=== PATIENT | female | born 1990 | race African-American/Black ===

== ENCOUNTER 2021-03-23 15:30 | Outpatient (CLI) | payer OTHER ==
[2021-03-24 08:59] LABS: SARS-CoV-2 PCR by NAA Not Detected (NotDetected)
== END 2021-03-23 15:31 | disposition home or self-care (01) ==
LOC: CSHLAB 15:30
PROVIDERS: ATTEND Family Medicine
DX: Z20.822 Contact with and (suspected) exposure to COVID-19 (principal)
CPT/HCPCS: U0003; U0005

== ENCOUNTER 2021-03-24 09:04 | Inpatient (IN) | payer OTHER ==
[2021-03-24 09:57] VITALS: BMI 27.4
[2021-03-24] MEDS ORDERED: NS w/ Oxytocin 30 units 500 ML IV SCH (10:30)
[2021-03-24] MEDS ORDERED: Carboprost 250 MCG/ML AMP IM PRN (10:30)
[2021-03-24] MEDS ORDERED: NS w/ Oxytocin 30 units 500 ML IVPB SCH (10:30)
[2021-03-24] MEDS ORDERED: Ondansetron PF 4 MG/2 ML Vial IVP PRN (10:30)
[2021-03-24] MEDS ORDERED: Lactated Ringer's 1,000 ML IV SCH (10:30)
[2021-03-24] MEDS ORDERED: Butorphanol Tartrate 1 MG/ML VIAL SLOW IVP PRN (10:30)
[2021-03-24] MEDS ORDERED: Lidocaine 1% (PF) 30 ML VIAL SC PRN (10:30)
[2021-03-24] MEDS ORDERED: Promethazine HCl 25 MG/ML VIAL IM PRN ×2 (10:30→14:06)
[2021-03-24] MEDS ORDERED: Misoprostol 200 MCG TAB PR PRN (10:30)
[2021-03-24] MEDS ORDERED: HYDROcodone/Acetaminophen 5/325 mg Tablet PO PRN (10:30)
[2021-03-24] MEDS ORDERED: Methylergonovine 0.2 MG/ML VIAL IM PRN (10:30)
[2021-03-24] MEDS ORDERED: Acetaminophen 500 MG TAB PO PRN (10:30)
[2021-03-24] MEDS ORDERED: Ibuprofen 800 MG TAB PO PRN (10:30)
[2021-03-24] MEDS ORDERED: Diphenoxylate HCl/Atropine Tablet PO PRN (10:30)
[2021-03-24] MEDS ORDERED: hydrALAZINE 20 MG/ML VIAL SLOW IVP PRN ×2 (10:30→14:06)
[2021-03-24 10:49] LABS: Hemoglobin 13.6 g/dL (12.0-15.5); Mean Corpuscular HGB CONC 35.1 g/dL (32.0-36.0); Mean Corpuscular Hemoglobin 30.7 pg (27.0-33.0); Mean Corpuscular Volume 87.6 fl (81.6-98.3); Mean Platelet Volume 11.1 fl (7.4-10.4); Platelet Count 173 10x3/uL (150-450); RBC Distribution Width 14.4 % (11.5-14.5); Red Blood Cell (RBC) Count 4.43 10x6/uL (3.90-5.03); White Blood Cell (WBC) Count 10.7 10x3/uL (3.5-10.5)
[2021-03-24 11:31] LABS: Syphilis Antibody Nonreactive (Nonreactive); Syphilis Antibody Index 0.05 S/CO (<1.00 Non-Reactive)
[2021-03-24 11:32] LABS: Hep B Surf Ag Non-Reactive S/CO (NonReactive)
[2021-03-24 11:44] LABS: HBSAg Index 0.26 S/CO (0-0.99)
[2021-03-24] MEDS: NS w/ Oxytocin 30 units 500 ML IV SCH ×2 (13:01→13:43)
[2021-03-24] MEDS ORDERED: Preparation H Ointment 28 GM TUBE PR PRN (14:06)
[2021-03-24] MEDS ORDERED: Bisacodyl 10 MG SUPP PR PRN (14:06)
[2021-03-24] MEDS ORDERED: Milk Of Magnesia 30 ML UDCUP PO PRN (14:06)
[2021-03-24] MEDS ORDERED: Lanolin Ointment 7 GM TUBE TOP PRN (14:06)
[2021-03-24] MEDS ORDERED: Boostrix 0.5 ML (Tdap) VIAL IM ONE (14:06)
[2021-03-24] MEDS ORDERED: Ibuprofen 800 MG TAB PO SCH (14:30)
[2021-03-24] MEDS: HYDROcodone/Acetaminophen 5/325 mg Tablet PO PRN (15:18)
[2021-03-24] MEDS: Ferrous Sulfate 325 MG TAB PO SCH (16:13)
[2021-03-24] MEDS: Docusate Calcium (SURFAK) 240 MG CAP PO SCH (22:31)
[2021-03-24] MEDS: Ibuprofen 800 MG TAB PO SCH (22:31)
[2021-03-25] MEDS: HYDROcodone/Acetaminophen 5/325 mg Tablet PO PRN (05:01)
[2021-03-25] MEDS: Ibuprofen 800 MG TAB PO SCH ×3 (05:05→21:17)
[2021-03-25] MEDS: Ferrous Sulfate 325 MG TAB PO SCH ×2 (09:03→18:25)
[2021-03-25] MEDS: Prenatal Vitamin 1 TAB PO SCH (09:03)
[2021-03-25] MEDS: Docusate Calcium (SURFAK) 240 MG CAP PO SCH ×2 (09:03→21:17)
[2021-03-26] MEDS: Ibuprofen 800 MG TAB PO SCH ×2 (05:04→13:43)
[2021-03-26 07:57] VITALS: BP 114/74; TEMP 97.9
[2021-03-26] MEDS: Ferrous Sulfate 325 MG TAB PO SCH (08:50)
[2021-03-26] MEDS: Docusate Calcium (SURFAK) 240 MG CAP PO SCH (09:23)
[2021-03-26] MEDS: Prenatal Vitamin 1 TAB PO SCH (09:23)
== END 2021-03-26 18:41 | disposition home or self-care (01) | DRG 807 ==
LOC: CSHLD/OP 09:04 → CSHLD 10:18 → CSHPED 15:09
PROVIDERS: ADMIT Family Medicine; ATTEND Family Medicine
PROC: 10E0XZZ Delivery of Products of Conception, External Approach (ICD-10-PCS; principal; 2021-03-26)
DX: O80 Encounter for full-term uncomplicated delivery (principal); Z37.0 Single live birth; Z67.11 Type A blood, Rh negative; Z3A.38 38 weeks gestation of pregnancy
CPT/HCPCS: 85027; 86780; 86850; 86900; 86901; 87340; 99285; J2590; U0003; U0005

== ENCOUNTER 2021-11-22 21:58 | Emergency (ER) | payer OTHER | END 2021-11-22 23:23 | disposition home or self-care (01) | LOC: CSHERS 21:58 | DX: S62.622A Displaced fracture of middle phalanx of right middle finger, initial encounter for closed fracture (principal); X50.1XXA Overexertion from prolonged static or awkward postures, initial encounter | CPT/HCPCS: 29130 ==